=== PATIENT | female | born 1990 | race Caucasian/White ===

== ENCOUNTER 2016-11-19 16:38 | Emergency (ER) | payer OTHER ==
--- NOTE | 2016-11-19 21:04 | ED NURSING NOTES ---
Clinical Report - Nurses [facility] [address] [place] [address] 11/19/2016 16:39 Patient: EMORY IGLESIAS TRIAGE Triage time 1655. Acuity: LEVEL 3. Chief Complaint: ABDOMINAL PAIN and CRAMPS and VAGINAL BLEEDING. Alert. No acute distress. (anxious tearful). --17:25 Becky Reese 17:03 11/19/16. BP: 124/76. HR: 110. RR: 18. O2 saturation: 100%. Temp: 98.9 F. Pain level now 03/31. --17:25 Becky Reese. Weight: 61.2 kg. Height/Length: 65 inches. BMI: 22.5. --17: Becky Reese. Medications None. --17:12 Becky Reese. Allergies No Known Drug Allergy. --17:12 Becky Reese. History Arrived by private vehicle. Historian: patient. Onset. (3 days ago). ( Pt is 7 weeks and has been having bleeding and cramping, pt had leap procedure due to cervical cancer, leaving her with incompetent cervix, lost a 22 week 10/21/15 from this, is fearful she is miscarrying now, also is struggling getting needed injection and better care proactively). SOCIAL HX: Smoker- current status unknown. --17:25 Becky Reese. PROBLEMS: Cancer. Dental Pain. Alcohol Intoxication. GI Disease. Ulcerative Colitis. Crohn's Disease. Tonsillitis. Cervical Strain. --17:16 Becky Reese. ADDITIONAL SURGERIES: Dilatation & Curettage. --17:16 Becky Reese. Interventions To treatment room. --17:25 Becky Reese. PHYSICAL ASSESSMENT Ambulatory to room. GENERAL / NEURO / PSYCH: Alert. Oriented X 4. Appears anxious and in distress. HEENT: Mucous membranes are pink. RESPIRATORY: Respirations not labored. Breath sounds within normal limits. CVS: Normal heart rate and rhythm. Capillary refill less than 2 seconds. GI / : Abdomen soft and nontender. Bowel sounds within normal limits. Vaginal bleeding present. Vaginal discharge present. EXTREMITIES: No lower extremity edema. SKIN: Skin is warm and dry. --17:25 Becky Reese. NURSING PROGRESS NOTES Checked patient name and birthdate: patient confirmed. Blood samples drawn from the right antecubital space with syringe and 23g butterfly by tech per protocol ; labeled in presence of the patient: rainbow set: cardiac enzymes (1st set). --18:24 Jaime Houston 20:01 11/19/2016 Acetaminophen (APAP) PO 1000 mg given. Allergies verified and confirmed 5 rights. --20:01 Becky Reese. DISPOSITION / DISCHARGE 21:36. ( First contact with the patient. Patient refused to have any more vs done.). No learning barriers present. Discharge instructions provided and reviewed with the patient. Reviewed medication(s) side effects, precautions, dosing and course information. Prescription(s) given to the patient. Patient verbalized understanding. Written instructions provided in Malawian. The patient was discharged home. She left the Emergency Department ambulatory and via private vehicle. Patient driving. Medication list reviewed and validated. --22:15 Edilia Padilla R.N. Locked/Released at 11/19/2016 22:17 by Edilia Padilla R.N.
--- NOTE | 2016-11-19 21:04 | ED CLINICAL REPORT ---
Clinical Report - Physicians/Mid Levels [facility] [address] [place] [address] 11/19/2016 16:39 Patient: EMORY IGLESIAS Time Seen: 17:05; initial patient contact, initial documentation, patient care assumed. Arrived- By private vehicle. Historian- patient. HISTORY OF PRESENT ILLNESS Chief Complaint: PELVIC PAIN and VAGINAL BLEEDING. This started about 3 days ago and still present. The symptoms are described as moderate. Modifying factors. Not worsened by anything. Not relieved by anything. The patient has had crampy pelvic pain, described as "pain". 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 Not passing clots or tissue. She has had a copious amount of malodorous vaginal discharge (bloody). No itchy, burning or painful vaginal discharge. No pain with urination, urinary frequency, urgency of urination or hematuria. Not sexually active. Currently . Similar symptoms previously: None. Recent medical care: The patient was seen recently in the office. ( went to dr last week, had us done, was told she had subchorionic bleed, no f/u yet, still cramping and bleeding). REVIEW OF SYSTEMS No vomiting, diarrhea, fever, difficulty breathing or chest pain. All systems otherwise negative, except as recorded above. PAST HISTORY See nurses notes. ( PROBLEMS: Cancer. Dental Pain. Alcohol Intoxication. GI Disease. Ulcerative Colitis. Crohn's Disease. Tonsillitis. Cervical Strain. --17:16 Becky Reese. ADDITIONAL SURGERIES: Dilatation & Curettage. --17:16 Becky Reese.). SOCIAL HISTORY Never smoker. No alcohol use or drug use. No recent travel. Is a local resident. FAMILY HISTORY Negative. ADDITIONAL NOTES The nursing notes have been reviewed with agreement regarding the chief complaint, HPI, ROS, PMH and patient medications and allergies. PHYSICAL EXAM Vital Signs: 11/19/2016 17:03 BP: 124/76. HR: 110. RR: 18. O2 saturation: 100%. Temp: 98.9 F. Have been reviewed as abnormal and appear to be correct. Blood pressure normal. Tachycardic. Respiratory rate normal. Temperature normal. Oxygen saturation normal. Appearance: Alert. Oriented X3. No acute distress. Anxious. HEENT: Normal external inspection. ENT: Pharynx normal. Neck: Neck supple. CVS: Heart sounds normal. Respiratory: No respiratory distress. Breath sounds normal. Chest nontender. Abdomen: Soft. Bowel sounds normal. No organomegaly. No mass. Back: Normal external inspection. : External inspection normal. Speculum exam abnormal. A scant amount of thick, white and malodorous vaginal discharge present. No vaginal bleeding. Cervical os closed. No cervical dilation. No tissue present. No cervicitis. No herpes-like lesions. Bimanual exam normal. No adnexal tenderness. Skin: Skin warm and dry. Normal skin color. No rash. Normal skin turgor. Extremities: Extremities nontender. No lower extremity edema. Neuro: Oriented X 3. Mood/affect normal. No motor deficit. No sensory deficit. LABS, X-RAYS, AND EKG Pelvic Sonogram: A single gestation intrauterine (7w1d) is present with subchorionic hemorrhage. Cardiac activity noted. Single focus of cardiac activity present (hr 131). A small subchorionic hemorrhage is present. . verbal report from [employer]. Interpretation time: 20:50. Laboratory Tests: CBC w Diff: (ADRIANNA: 11/19/2016 18:10) ( MsgRcvd 11/19/2016 18:23) Final results Test Result Flag Units (Reference) WHITE BLOOD COUNT 14.6 H K/uL (4.5-11.5) RED BLOOD COUNT 3.76 L M/uL (4.00-5.20) HEMOGLOBIN 12.5 gm/dL (12.0-16.0) HEMATOCRIT 36.4 % (36.0-46.0) MEAN CELL VOLUME 97 fL (80-100) MEAN CORPUSCULAR HGB 33 pg (26-34) MEAN CORPUSCULAR HGB CONC 34 g/dL (31-37) RED CELL DISTRIBUTION WIDTH 12.0 % (11.6-14.8) PLATELET COUNT 261 K/uL (150-400) NEUTROPHIL % 81.4 H % (50-75) LYMPH % 12.4 L % (25-40) MONO % 5.5 % (3-14) EOSINOPHIL % 0.2 % (0-4) BASOPHIL % 0.5 % (0-2) Serum Quantitative: (ADRIANNA: 11/19/2016 00:01) ( MsgRcvd 11/19/2016 19:46) Final results Test Result Flag Units (Reference) BETA HCG, QUANTITATIVE 635796 mIU/mL REFERENCE RANGE:Adult Males: <2 mIU/mLNon- Females: <6 mIU/mL Females:Approximate Approximate hCGGestational Age Range (mIU/mL) 0-1 week 0-501-2 weeks 40-3002-3 weeks 100-42030-6 weeks 500-63302-9 months 5,000-200,0002-3 months 10,000-100,0002nd trimester 3,000-50,0003rd trimester 1,000-50,000 BMP: (ADRIANNA: 11/19/2016 18:10) ( MsgRcvd 11/19/2016 18:46) Final results Test Result Flag Units (Reference) GLUCOSE 78 mg/dL (70-110) BUN 5 L mg/dL (7-18) CREATININE 0.5 L mg/dL (0.6-1.3) Estimated GFR >60 mL/min Estimated GFR- >60 mL/min Note: Persistent reduction over 3 months in eGFR<60 mL/min/1.73 m2 defines CKD. Patients with eGFR values>=60 mL/min/1.73 m2 may also have CKD if evidence ofpersistent proteinuria. Additional information may be foundat www.kidney.org. SODIUM 138 mmol/L (136-145) POTASSIUM 3.5 mmol/L (3.5-5.1) CHLORIDE 102 mmol/L (98-107) CARBON DIOXIDE 26 mmol/L (21-32) CALCIUM 8.7 mg/dL (8.5-10.1) Wet Prep: (ADRIANNA: 11/19/2016 17:45) ( MsgRcvd 11/19/2016 18:01) Final results SPECIMEN DESCRIPTION: CERVIX Test Result Flag Units (Reference) WET MOUNT CLUE CELLS:: MODERATE * EPITHELIAL CELLS: MODERATE -- SOURCE?: CERVIX WHITE BLOOD CELLS: MODERATE TRICHOMONAS:: NONE -- YEAST:: NONE . PROGRESS AND PROCEDURES Course of Care: 17:06 11/19/16. pt has deanna for frequent er visits, #8, controlled substances and alcohol abuse, see report for full details 0. asked staff to call lab twice regarding quant results, still pending 1924. OBSTETRICS GYN PHYSICIAN student Donna with me on this pt, went to room to update pt on results, pt aware of bv, pt upset over delay of labs and threatening to leave in us and labs aren't done in 15 min 19:51 11/19/16. pt updated with lab results, and pending us 20:22 11/19/16. US here. Patient counseled in person regarding the patient's stable condition, test results and diagnosis. 20:51. Differential Diagnosis: I considered vaginitis, ovarian cysts, pelvic inflammatory disease, endometriosis, uterine fibroids, intrauterine , ectopic , incomplete , threatened , retained products of and endometritis as a possible cause of vaginal bleeding in this patient. This is a partial list of diagnoses considered. Above considerations are based on history, physical exam and laboratory data. Differential diagnosis was discussed with patient. Disposition: Discharged home in good and improved condition (21:04). Condition: good and stable. CLINICAL IMPRESSION Acute moderate bacterial vaginitis Acute pelvic pain. INSTRUCTIONS Warnings: GENERAL WARNINGS: Return or contact your physician immediately if your condition worsens or changes unexpectedly, if not improving as expected, or if other problems arise. Specifically return if problem worsens. Prescription Medications: Flagyl 500 mg: Take 1 tablet orally every 12 hours for 7 days. No refill. Substitution is permissible. Understanding of the discharge instructions verbalized by patient. Follow-up with: Ezequiel Keith MD, Obstetrics/Gynecology, , [facility], [address] [place] [address] Follow up in about three days even if well. Call for an appointment. Summary of care provided to patient. (Electronically signed by Tegan Clarke A.R.N.P. 11/19/2016 22:35)
--- NOTE | 2016-11-19 21:04 | ED ORDER SUMMARY ---
..... Patient: EMORY IGLESIAS OrderSheet [facility] VisitID: [id number] [place] [address] 26y, F Registration Date/Time: 11/19/2016 ORDER SHEET Weight: 61.2 kg Allergies: No Known Drug Allergy GENERAL ORDERS: CBC w Diff Urgent (17:35 11/19/2016 HBivens A.R.N.P.) (Ack 17:48 RKaruga) (18:25 LTapper) BMP Urgent (17:35 11/19/2016 HBivens A.R.N.P.) (Ack 17:48 RKaruga) (18:25 LTapper) Serum Qualitative Urgent (17:35 11/19/2016 HBivens A.R.N.P.) (17:35 HBivens A.R.N.P.) (Cancelled: Other17:35 HBivens A.R.N.P.) Serum Quantitative Urgent (17:35 11/19/2016 HBivens A.R.N.P.) (Ack 17:48 RKaruga) (18:35 MWinterer R.N.) Pelvic Exam Setup (17:35 11/19/2016 HBivens A.R.N.P.) (17:48 RKaruga) Wet Prep (Cervix) (cervix) Urgent (17:47 11/19/2016 HBivens A.R.N.P.) (Ack 17:48 RKaruga) Serum Quantitative Urgent (19:18 11/19/2016 LTapper written order HBivens A.R.N.P.) (Ack 19:59 LTapper) US OB 1st Trimester w Transvag (7 wks ago) Urgent (19:50 11/19/2016 HBivens A.R.N.P.) (Ack 19:59 LTapper) (21:04 RFay) MEDICATION ORDERS: Acetaminophen PO 1,000 mg (NOW) (19:52 11/19/2016 HBivens A.R.N.P.) (20:01 EBonham) IV FLUIDS: ORDER SHEET NOTES: [Electronically signed by Edilia Padilla R.N. (22:17 11/19/2016)] [Electronically signed by Tegan Clarke (22:35 11/19/2016)] [Electronically locked/signed by Edilia Padilla R.N. (22:17 11/19/2016)]
--- NOTE | 2016-11-19 21:04 | ED CLINICAL REPORT ---
Clinical Report - Physicians/Mid Levels [facility] [address] [place] [address] 11/19/2016 16:39 Patient: EMORY IGLESIAS Time Seen: 17:05; initial patient contact, initial documentation, patient care assumed. Arrived- By private vehicle. Historian- patient. HISTORY OF PRESENT ILLNESS Chief Complaint: PELVIC PAIN and VAGINAL BLEEDING. This started about 3 days ago and still present. The symptoms are described as moderate. Modifying factors. Not worsened by anything. Not relieved by anything. The patient has had crampy pelvic pain, described as "pain". 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 Not passing clots or tissue. She has had a copious amount of malodorous vaginal discharge (bloody). No itchy, burning or painful vaginal discharge. No pain with urination, urinary frequency, urgency of urination or hematuria. Not sexually active. Currently . Similar symptoms previously: None. Recent medical care: The patient was seen recently in the office. ( went to dr last week, had us done, was told she had subchorionic bleed, no f/u yet, still cramping and bleeding). REVIEW OF SYSTEMS No vomiting, diarrhea, fever, difficulty breathing or chest pain. All systems otherwise negative, except as recorded above. PAST HISTORY See nurses notes. ( PROBLEMS: Cancer. Dental Pain. Alcohol Intoxication. GI Disease. Ulcerative Colitis. Crohn's Disease. Tonsillitis. Cervical Strain. --17:16 Becky Reese. ADDITIONAL SURGERIES: Dilatation & Curettage. --17:16 Becky Reese.). SOCIAL HISTORY Never smoker. No alcohol use or drug use. No recent travel. Is a local resident. FAMILY HISTORY Negative. ADDITIONAL NOTES The nursing notes have been reviewed with agreement regarding the chief complaint, HPI, ROS, PMH and patient medications and allergies. PHYSICAL EXAM Vital Signs: 11/19/2016 17:03 BP: 124/76. HR: 110. RR: 18. O2 saturation: 100%. Temp: 98.9 F. Have been reviewed as abnormal and appear to be correct. Blood pressure normal. Tachycardic. Respiratory rate normal. Temperature normal. Oxygen saturation normal. Appearance: Alert. Oriented X3. No acute distress. Anxious. HEENT: Normal external inspection. ENT: Pharynx normal. Neck: Neck supple. CVS: Heart sounds normal. Respiratory: No respiratory distress. Breath sounds normal. Chest nontender. Abdomen: Soft. Bowel sounds normal. No organomegaly. No mass. Back: Normal external inspection. : External inspection normal. Speculum exam abnormal. A scant amount of thick, white and malodorous vaginal discharge present. No vaginal bleeding. Cervical os closed. No cervical dilation. No tissue present. No cervicitis. No herpes-like lesions. Bimanual exam normal. No adnexal tenderness. Skin: Skin warm and dry. Normal skin color. No rash. Normal skin turgor. Extremities: Extremities nontender. No lower extremity edema. Neuro: Oriented X 3. Mood/affect normal. No motor deficit. No sensory deficit. LABS, X-RAYS, AND EKG Pelvic Sonogram: A single gestation intrauterine (7w1d) is present with subchorionic hemorrhage. Cardiac activity noted. Single focus of cardiac activity present (hr 131). A small subchorionic hemorrhage is present. . verbal report from [employer]. Interpretation time: 20:50. Laboratory Tests: CBC w Diff: (ADRIANNA: 11/19/2016 18:10) ( MsgRcvd 11/19/2016 18:23) Final results Test Result Flag Units (Reference) WHITE BLOOD COUNT 14.6 H K/uL (4.5-11.5) RED BLOOD COUNT 3.76 L M/uL (4.00-5.20) HEMOGLOBIN 12.5 gm/dL (12.0-16.0) HEMATOCRIT 36.4 % (36.0-46.0) MEAN CELL VOLUME 97 fL (80-100) MEAN CORPUSCULAR HGB 33 pg (26-34) MEAN CORPUSCULAR HGB CONC 34 g/dL (31-37) RED CELL DISTRIBUTION WIDTH 12.0 % (11.6-14.8) PLATELET COUNT 261 K/uL (150-400) NEUTROPHIL % 81.4 H % (50-75) LYMPH % 12.4 L % (25-40) MONO % 5.5 % (3-14) EOSINOPHIL % 0.2 % (0-4) BASOPHIL % 0.5 % (0-2) Serum Quantitative: (ADRIANNA: 11/19/2016 00:01) ( MsgRcvd 11/19/2016 19:46) Final results Test Result Flag Units (Reference) BETA HCG, QUANTITATIVE 866680 mIU/mL REFERENCE RANGE:Adult Males: <2 mIU/mLNon- Females: <6 mIU/mL Females:Approximate Approximate hCGGestational Age Range (mIU/mL) 0-1 week 0-501-2 weeks 40-3002-3 weeks 100-28981-1 weeks 500-41328-5 months 5,000-200,0002-3 months 10,000-100,0002nd trimester 3,000-50,0003rd trimester 1,000-50,000 BMP: (ADRIANNA: 11/19/2016 18:10) ( MsgRcvd 11/19/2016 18:46) Final results Test Result Flag Units (Reference) GLUCOSE 78 mg/dL (70-110) BUN 5 L mg/dL (7-18) CREATININE 0.5 L mg/dL (0.6-1.3) Estimated GFR >60 mL/min Estimated GFR- >60 mL/min Note: Persistent reduction over 3 months in eGFR<60 mL/min/1.73 m2 defines CKD. Patients with eGFR values>=60 mL/min/1.73 m2 may also have CKD if evidence ofpersistent proteinuria. Additional information may be foundat www.kidney.org. SODIUM 138 mmol/L (136-145) POTASSIUM 3.5 mmol/L (3.5-5.1) CHLORIDE 102 mmol/L (98-107) CARBON DIOXIDE 26 mmol/L (21-32) CALCIUM 8.7 mg/dL (8.5-10.1) Wet Prep: (ADRIANNA: 11/19/2016 17:45) ( MsgRcvd 11/19/2016 18:01) Final results SPECIMEN DESCRIPTION: CERVIX Test Result Flag Units (Reference) WET MOUNT CLUE CELLS:: MODERATE * EPITHELIAL CELLS: MODERATE -- SOURCE?: CERVIX WHITE BLOOD CELLS: MODERATE TRICHOMONAS:: NONE -- YEAST:: NONE . PROGRESS AND PROCEDURES Course of Care: 17:06 11/19/16. pt has deanna for frequent er visits, #8, controlled substances and alcohol abuse, see report for full details 0. asked staff to call lab twice regarding quant results, still pending 1924. SUPERVISING NURSE student Donna with me on this pt, went to room to update pt on results, pt aware of bv, pt upset over delay of labs and threatening to leave in us and labs aren't done in 15 min 19:51 11/19/16. pt updated with lab results, and pending us 20:22 11/19/16. US here. Patient counseled in person regarding the patient's stable condition, test results and diagnosis. 20:51. Differential Diagnosis: I considered vaginitis, ovarian cysts, pelvic inflammatory disease, endometriosis, uterine fibroids, intrauterine , ectopic , incomplete , threatened , retained products of and endometritis as a possible cause of vaginal bleeding in this patient. This is a partial list of diagnoses considered. Above considerations are based on history, physical exam and laboratory data. Differential diagnosis was discussed with patient. Disposition: Discharged home in good and improved condition (21:04). Condition: good and stable. CLINICAL IMPRESSION Acute moderate bacterial vaginitis Acute pelvic pain. INSTRUCTIONS Warnings: GENERAL WARNINGS: Return or contact your physician immediately if your condition worsens or changes unexpectedly, if not improving as expected, or if other problems arise. Specifically return if problem worsens. Prescription Medications: Flagyl 500 mg: Take 1 tablet orally every 12 hours for 7 days. No refill. Substitution is permissible. Understanding of the discharge instructions verbalized by patient. Follow-up with: Ezequiel Keith MD, Obstetrics/Gynecology, , [facility], [address] [place] [address] Follow up in about three days even if well. Call for an appointment. Summary of care provided to patient. (Electronically signed by Tegan Clarke A.R.N.P. 11/19/2016 22:35)
--- NOTE | 2016-11-19 21:04 | ED ORDER SUMMARY ---
..... Patient: EMORY IGLESIAS OrderSheet [facility] VisitID: [id number] [place] [address] 26y, F Registration Date/Time: 11/19/2016 ORDER SHEET Weight: 61.2 kg Allergies: No Known Drug Allergy GENERAL ORDERS: CBC w Diff Urgent (17:35 11/19/2016 HBivens A.R.N.P.) (Ack 17:48 RKaruga) (18:25 LTapper) BMP Urgent (17:35 11/19/2016 HBivens A.R.N.P.) (Ack 17:48 RKaruga) (18:25 LTapper) Serum Qualitative Urgent (17:35 11/19/2016 HBivens A.R.N.P.) (17:35 HBivens A.R.N.P.) (Cancelled: Other17:35 HBivens A.R.N.P.) Serum Quantitative Urgent (17:35 11/19/2016 HBivens A.R.N.P.) (Ack 17:48 RKaruga) (18:35 MWinterer R.N.) Pelvic Exam Setup (17:35 11/19/2016 HBivens A.R.N.P.) (17:48 RKaruga) Wet Prep (Cervix) (cervix) Urgent (17:47 11/19/2016 HBivens A.R.N.P.) (Ack 17:48 RKaruga) Serum Quantitative Urgent (19:18 11/19/2016 LTapper written order HBivens A.R.N.P.) (Ack 19:59 LTapper) US OB 1st Trimester w Transvag (7 wks ago) Urgent (19:50 11/19/2016 HBivens A.R.N.P.) (Ack 19:59 LTapper) (21:04 RFay) MEDICATION ORDERS: Acetaminophen PO 1,000 mg (NOW) (19:52 11/19/2016 HBivens A.R.N.P.) (20:01 EBonham) IV FLUIDS: ORDER SHEET NOTES: [Electronically signed by Edilia Padilla R.N. (22:17 11/19/2016)] [Electronically signed by Tegan Clarke (22:35 11/19/2016)] [Electronically locked/signed by Edilia Padilla R.N. (22:17 11/19/2016)]
--- NOTE | 2016-11-19 21:04 | ED NURSING NOTES ---
Clinical Report - Nurses [facility] [address] [place] [address] 11/19/2016 16:39 Patient: EMORY IGLESIAS TRIAGE Triage time 1655. Acuity: LEVEL 3. Chief Complaint: ABDOMINAL PAIN and CRAMPS and VAGINAL BLEEDING. Alert. No acute distress. (anxious tearful). --17:25 Becky Reese 17:03 11/19/16. BP: 124/76. HR: 110. RR: 18. O2 saturation: 100%. Temp: 98.9 F. Pain level now 03/31. --17:25 Becky Reese. Weight: 61.2 kg. Height/Length: 65 inches. BMI: 22.5. --17: Becky Reese. Medications None. --17:12 Becky Reese. Allergies No Known Drug Allergy. --17:12 Becky Reese. History Arrived by private vehicle. Historian: patient. Onset. (3 days ago). ( Pt is 7 weeks and has been having bleeding and cramping, pt had leap procedure due to cervical cancer, leaving her with incompetent cervix, lost a 22 week 10/21/15 from this, is fearful she is miscarrying now, also is struggling getting needed injection and better care proactively). SOCIAL HX: Smoker- current status unknown. --17:25 Becky Reese. PROBLEMS: Cancer. Dental Pain. Alcohol Intoxication. GI Disease. Ulcerative Colitis. Crohn's Disease. Tonsillitis. Cervical Strain. --17:16 Becky Reese. ADDITIONAL SURGERIES: Dilatation & Curettage. --17:16 Becky Reese. Interventions To treatment room. --17:25 Becky Reese. PHYSICAL ASSESSMENT Ambulatory to room. GENERAL / NEURO / PSYCH: Alert. Oriented X 4. Appears anxious and in distress. HEENT: Mucous membranes are pink. RESPIRATORY: Respirations not labored. Breath sounds within normal limits. CVS: Normal heart rate and rhythm. Capillary refill less than 2 seconds. GI / : Abdomen soft and nontender. Bowel sounds within normal limits. Vaginal bleeding present. Vaginal discharge present. EXTREMITIES: No lower extremity edema. SKIN: Skin is warm and dry. --17:25 Becky Reese. NURSING PROGRESS NOTES Checked patient name and birthdate: patient confirmed. Blood samples drawn from the right antecubital space with syringe and 23g butterfly by tech per protocol ; labeled in presence of the patient: rainbow set: cardiac enzymes (1st set). --18:24 Jaime Houston 20:01 11/19/2016 Acetaminophen (APAP) PO 1000 mg given. Allergies verified and confirmed 5 rights. --20:01 Becky Reese. DISPOSITION / DISCHARGE 21:36. ( First contact with the patient. Patient refused to have any more vs done.). No learning barriers present. Discharge instructions provided and reviewed with the patient. Reviewed medication(s) side effects, precautions, dosing and course information. Prescription(s) given to the patient. Patient verbalized understanding. Written instructions provided in Iranian. The patient was discharged home. She left the Emergency Department ambulatory and via private vehicle. Patient driving. Medication list reviewed and validated. --22:15 Edilia Padilla R.N. Locked/Released at 11/19/2016 22:17 by Edilia Padilla R.N.
--- NOTE | 2016-11-19 22:35 | ED DISCHARGE INSTRUCTIONS ---
Patient: EMORY IGLESIAS General Instructions [facility] VisitID: [id number] [place] [address] 26y, F Registration Date/Time: 11/19/2016 Acute moderate bacterial vaginitis Acute pelvic pain. INSTRUCTIONS Warnings: GENERAL WARNINGS: Return or contact your physician immediately if your condition worsens or changes unexpectedly, if not improving as expected, or if other problems arise. Specifically return if problem worsens. Prescription Medications: Flagyl 500 mg: Take 1 tablet orally every 12 hours for 7 days. No refill. Substitution is permissible. Understanding of the discharge instructions verbalized by patient. Follow-up with: Ezequiel Keith MD, Obstetrics/Gynecology, , [facility], [address] [place] [address] Follow up in about three days even if well. Call for an appointment. Summary of care provided to patient. ADDITIONAL INFORMATION Pelvic Pain, Uncertain Cause Based on your visit today, the exact cause of your pelvic pain is not certain. But your condition does not appear to be serious at this time. However, the signs of a serious problem may take more time to appear. Therefore, it is important for you to watch for any new symptoms or worsening of your condition. Home Care: Rest until you are feeling better. Avoid sexual intercourse until your pain goes away. You may use acetaminophen (Tylenol) or ibuprofen (Motrin, Advil) to control pain, unless another medicine was prescribed. [NOTE: If you have chronic liver or kidney disease or ever had a stomach ulcer or GI bleeding, talk with your doctor before using these medicines.] Follow Up with your doctor as advised. If a culture test was taken, call in two days for the results. If the culture is positive, you will be given more advice at that time. Otherwise, follow-up with your doctor or this facility as instructed. Get Prompt Medical Attention if any of the following occur: Fever of 100.4F (38C) or higher, or as directed by your healthcare provider Vaginal discharge Worsening pain Weakness, dizziness or fainting Unexpected vaginal bleeding or passage of osei or white tissue from the vagina Pain that moves to the right lower abdomen Bacterial Vaginosis You have a bacterial infection of the vagina called bacterial vaginosis (BV). It may also be called gardnerella or non-specific vaginitis. BV occurs when the "bad" bacteria outnumber the "good" bacteria that are normally present in the vagina. Symptoms include foul-smelling vaginal discharge (most noticeable after vaginal intercourse). There may also be burning with urination. The burning is caused as the urine passes over the inflamed outer vaginal area. The cause of bacterial vaginosis is not certain. However, your risk is higher if you recently began a new sexual relationship, or have had many sex partners in the past. Your risk is also higher if you douche often. While bacterial vaginosis most often occurs only in sexually active women, this is not a true sexually transmitted disease. You did not get this from your partner. You cannot give it to your partner. The infection may be related to temporary changes in the pH of vaginal fluids after being exposed to semen. Home Care: Keep the genital area clean and free of discharge. Do this by wearing an absorbent sanitary pad and changing it often. Shower daily. When you shower, clean the outer vaginal area with plain soap and water. Do not douche during treatment unless advised to do so by your doctor. Routine douching after treatment is no longer recommended to clean the vagina. It raises your risk of vaginal infection and pelvic inflammatory disease. Avoid having sex until you have finished all antibiotic medicine and all symptoms have gone away. Wear cotton underwear or cotton-lined panty hose. Dont wear pants that are too tight. Limiting the number of sex partners you have lowers your risk of this and other vaginal infections, STDs, and HIV. Take all medicine as directed until it is gone, even if you are feeling better. If you dont do this, symptoms might return. Follow Up with your doctor if symptoms dont go away after the medicine is finished. Get Prompt Medical Attention if any of the following occur: Fever of 100.4F (38C) or higher, or as directed by your healthcare provider Lower abdominal pain Rash or joint pain Painful sores around the outer vaginal area or on your partners penis Metronidazole Oral tablet What is this medicine? METRONIDAZOLE (me troe NI da zole) is an antiinfective. It is used to treat certain kinds of bacterial and protozoal infections. It will not work for colds, flu, or other viral infections. How should I use this medicine? Take this medicine by mouth with a full glass of water. Follow the directions on the prescription label. Take your medicine at regular intervals. Do not take your medicine more often than directed. Take all of your medicine as directed even if you think you are better. Do not skip doses or stop your medicine early. Talk to your assistant paralegal regarding the use of this medicine in children. Special care may be needed. What side effects may I notice from receiving this medicine? Side effects that you should report to your doctor or health manager intensive care as soon as possible: allergic reactions like skin rash or hives, swelling of the face, lips, or tongue confusion, clumsiness difficulty speaking discolored or sore mouth dizziness fever, infection numbness, tingling, pain or weakness in the hands or feet trouble passing urine or change in the amount of urine redness, blistering, peeling or loosening of the skin, including inside the mouth seizures unusually weak or tired vaginal irritation, dryness, or discharge Side effects that usually do not require medical attention (report to your doctor or health manager intensive care if they continue or are bothersome): diarrhea headache irritability metallic taste nausea stomach pain or cramps trouble sleeping What may interact with this medicine? Do not take this medicine with any of the following medications: alcohol or any product that contains alcohol amprenavir oral solution cisapride disulfiram dofetilide dronedarone paclitaxel injection pimozide ritonavir oral solution sertraline oral solution sulfamethoxazole-trimethoprim injection thioridazine ziprasidone This medicine may also interact with the following medications: cimetidine lithium other medicines that prolong the QT interval (cause an abnormal heart rhythm) phenobarbital phenytoin warfarin What if I miss a dose? If you miss a dose, take it as soon as you can. If it is almost time for your next dose, take only that dose. Do not take double or extra doses. Where should I keep my medicine? Keep out of the reach of children. Store at room temperature below 25 degrees C (77 degrees F). Protect from light. Keep container tightly closed. Throw away any unused medicine after the expiration date. What should I tell my health care provider before I take this medicine? They need to know if you have any of these conditions: anemia or other blood disorders disease of the nervous system fungal or yeast infection if you drink alcohol containing drinks liver disease seizures an unusual or allergic reaction to metronidazole, or other medicines, foods, dyes, or preservatives or trying to get breast-feeding What should I watch for while using this medicine? Tell your doctor or health manager intensive care if your symptoms do not improve or if they get worse. You may get drowsy or dizzy. Do not drive, use machinery, or do anything that needs mental alertness until you know how this medicine affects you. Do not stand or sit up quickly, especially if you are an older patient. This reduces the risk of dizzy or fainting spells. Avoid alcoholic drinks while you are taking this medicine and for three days afterward. Alcohol may make you feel dizzy, sick, or flushed. If you are being treated for a sexually transmitted disease, avoid sexual contact until you have finished your treatment. Your sexual partner may also need treatment. You have been given the following additional information: Pelvic Pain, Unknown Cause Vaginitis, Bacterial Metronidazole Oral tablet (Electronically signed by Tegan Clarke A.R.N.P. 11/19/2016 22:35)
--- NOTE | 2016-11-19 22:35 | ED MED RECONCILIATION SUMMARY ---
Patient: EMORY IGLESIAS Medication Reconciliation Report [facility] VisitID: [id number] [address] [place] [address] 26y, F Registration Date/Time: 11/19/2016 Weight: 61.2 kg Height/Length: 65 in. BMI: 22.5 ALLERGIES: No Known Drug Allergy The patient's Home Medications are listed below: NONE. The source(s) of the original Home Medication information: Not obtained. The following Medications were given to the patient in the Emergency Department: Acetaminophen [PO] PO 1000 mg, administered: 11/19/2016 8:01:00 PM The following Medications were prescribed to the patient: Flagyl 500 mg: Take 1 tablet orally every 12 hours for 7 days. No refill. Substitution is permissible. -- Tegan Clarke A.R.N.P.
--- NOTE | 2016-11-19 22:35 | ED MAR SUMMARY ---
..... Medication Administration Record [address] [place] [address] Patient: EMORY IGLESIAS Visit ID: [id number] 26y, F Weight: 61.2 kg Height/Length: 65 in BMI: 22.5 ALLERGIES: No Known Drug Allergy Given 20:01 11/19/2016 Becky Reese, Medication Administered: ACETAMINOPHEN [PO] (APAP), Dose: 1000 mg PO. Medication Ordered: Acetaminophen PO 1,000 mg (NOW).
--- NOTE | 2016-11-19 22:35 | ED MED RECONCILIATION SUMMARY ---
Patient: EMORY IGLESIAS Medication Reconciliation Report [facility] VisitID: [id number] [address] [place] [address] 26y, F Registration Date/Time: 11/19/2016 Weight: 61.2 kg Height/Length: 65 in. BMI: 22.5 ALLERGIES: No Known Drug Allergy The patient's Home Medications are listed below: NONE. The source(s) of the original Home Medication information: Not obtained. The following Medications were given to the patient in the Emergency Department: Acetaminophen [PO] PO 1000 mg, administered: 11/19/2016 8:01:00 PM The following Medications were prescribed to the patient: Flagyl 500 mg: Take 1 tablet orally every 12 hours for 7 days. No refill. Substitution is permissible. -- Tegan Clarke A.R.N.P.
--- NOTE | 2016-11-19 22:35 | ED DISCHARGE INSTRUCTIONS ---
Patient: EMORY IGLESIAS General Instructions [facility] VisitID: [id number] [place] [address] 26y, F Registration Date/Time: 11/19/2016 Acute moderate bacterial vaginitis Acute pelvic pain. INSTRUCTIONS Warnings: GENERAL WARNINGS: Return or contact your physician immediately if your condition worsens or changes unexpectedly, if not improving as expected, or if other problems arise. Specifically return if problem worsens. Prescription Medications: Flagyl 500 mg: Take 1 tablet orally every 12 hours for 7 days. No refill. Substitution is permissible. Understanding of the discharge instructions verbalized by patient. Follow-up with: Ezequiel Keith MD, Obstetrics/Gynecology, , [facility], [address] [place] [address] Follow up in about three days even if well. Call for an appointment. Summary of care provided to patient. ADDITIONAL INFORMATION Pelvic Pain, Uncertain Cause Based on your visit today, the exact cause of your pelvic pain is not certain. But your condition does not appear to be serious at this time. However, the signs of a serious problem may take more time to appear. Therefore, it is important for you to watch for any new symptoms or worsening of your condition. Home Care: Rest until you are feeling better. Avoid sexual intercourse until your pain goes away. You may use acetaminophen (Tylenol) or ibuprofen (Motrin, Advil) to control pain, unless another medicine was prescribed. [NOTE: If you have chronic liver or kidney disease or ever had a stomach ulcer or GI bleeding, talk with your doctor before using these medicines.] Follow Up with your doctor as advised. If a culture test was taken, call in two days for the results. If the culture is positive, you will be given more advice at that time. Otherwise, follow-up with your doctor or this facility as instructed. Get Prompt Medical Attention if any of the following occur: Fever of 100.4F (38C) or higher, or as directed by your healthcare provider Vaginal discharge Worsening pain Weakness, dizziness or fainting Unexpected vaginal bleeding or passage of osei or white tissue from the vagina Pain that moves to the right lower abdomen Bacterial Vaginosis You have a bacterial infection of the vagina called bacterial vaginosis (BV). It may also be called gardnerella or non-specific vaginitis. BV occurs when the "bad" bacteria outnumber the "good" bacteria that are normally present in the vagina. Symptoms include foul-smelling vaginal discharge (most noticeable after vaginal intercourse). There may also be burning with urination. The burning is caused as the urine passes over the inflamed outer vaginal area. The cause of bacterial vaginosis is not certain. However, your risk is higher if you recently began a new sexual relationship, or have had many sex partners in the past. Your risk is also higher if you douche often. While bacterial vaginosis most often occurs only in sexually active women, this is not a true sexually transmitted disease. You did not get this from your partner. You cannot give it to your partner. The infection may be related to temporary changes in the pH of vaginal fluids after being exposed to semen. Home Care: Keep the genital area clean and free of discharge. Do this by wearing an absorbent sanitary pad and changing it often. Shower daily. When you shower, clean the outer vaginal area with plain soap and water. Do not douche during treatment unless advised to do so by your doctor. Routine douching after treatment is no longer recommended to clean the vagina. It raises your risk of vaginal infection and pelvic inflammatory disease. Avoid having sex until you have finished all antibiotic medicine and all symptoms have gone away. Wear cotton underwear or cotton-lined panty hose. Dont wear pants that are too tight. Limiting the number of sex partners you have lowers your risk of this and other vaginal infections, STDs, and HIV. Take all medicine as directed until it is gone, even if you are feeling better. If you dont do this, symptoms might return. Follow Up with your doctor if symptoms dont go away after the medicine is finished. Get Prompt Medical Attention if any of the following occur: Fever of 100.4F (38C) or higher, or as directed by your healthcare provider Lower abdominal pain Rash or joint pain Painful sores around the outer vaginal area or on your partners penis Metronidazole Oral tablet What is this medicine? METRONIDAZOLE (me troe NI da zole) is an antiinfective. It is used to treat certain kinds of bacterial and protozoal infections. It will not work for colds, flu, or other viral infections. How should I use this medicine? Take this medicine by mouth with a full glass of water. Follow the directions on the prescription label. Take your medicine at regular intervals. Do not take your medicine more often than directed. Take all of your medicine as directed even if you think you are better. Do not skip doses or stop your medicine early. Talk to your engineering instructor regarding the use of this medicine in children. Special care may be needed. What side effects may I notice from receiving this medicine? Side effects that you should report to your doctor or health lawn care worker as soon as possible: allergic reactions like skin rash or hives, swelling of the face, lips, or tongue confusion, clumsiness difficulty speaking discolored or sore mouth dizziness fever, infection numbness, tingling, pain or weakness in the hands or feet trouble passing urine or change in the amount of urine redness, blistering, peeling or loosening of the skin, including inside the mouth seizures unusually weak or tired vaginal irritation, dryness, or discharge Side effects that usually do not require medical attention (report to your doctor or health lawn care worker if they continue or are bothersome): diarrhea headache irritability metallic taste nausea stomach pain or cramps trouble sleeping What may interact with this medicine? Do not take this medicine with any of the following medications: alcohol or any product that contains alcohol amprenavir oral solution cisapride disulfiram dofetilide dronedarone paclitaxel injection pimozide ritonavir oral solution sertraline oral solution sulfamethoxazole-trimethoprim injection thioridazine ziprasidone This medicine may also interact with the following medications: cimetidine lithium other medicines that prolong the QT interval (cause an abnormal heart rhythm) phenobarbital phenytoin warfarin What if I miss a dose? If you miss a dose, take it as soon as you can. If it is almost time for your next dose, take only that dose. Do not take double or extra doses. Where should I keep my medicine? Keep out of the reach of children. Store at room temperature below 25 degrees C (77 degrees F). Protect from light. Keep container tightly closed. Throw away any unused medicine after the expiration date. What should I tell my health care provider before I take this medicine? They need to know if you have any of these conditions: anemia or other blood disorders disease of the nervous system fungal or yeast infection if you drink alcohol containing drinks liver disease seizures an unusual or allergic reaction to metronidazole, or other medicines, foods, dyes, or preservatives or trying to get breast-feeding What should I watch for while using this medicine? Tell your doctor or health lawn care worker if your symptoms do not improve or if they get worse. You may get drowsy or dizzy. Do not drive, use machinery, or do anything that needs mental alertness until you know how this medicine affects you. Do not stand or sit up quickly, especially if you are an older patient. This reduces the risk of dizzy or fainting spells. Avoid alcoholic drinks while you are taking this medicine and for three days afterward. Alcohol may make you feel dizzy, sick, or flushed. If you are being treated for a sexually transmitted disease, avoid sexual contact until you have finished your treatment. Your sexual partner may also need treatment. You have been given the following additional information: Pelvic Pain, Unknown Cause Vaginitis, Bacterial Metronidazole Oral tablet (Electronically signed by Tegan Clarke A.R.N.P. 11/19/2016 22:35)
--- NOTE | 2016-11-19 22:35 | ED MAR SUMMARY ---
..... Medication Administration Record [address] [place] [address] Patient: EMORY IGLESIAS Visit ID: [id number] 26y, F Weight: 61.2 kg Height/Length: 65 in BMI: 22.5 ALLERGIES: No Known Drug Allergy Given 20:01 11/19/2016 Becky Reese, Medication Administered: ACETAMINOPHEN [PO] (APAP), Dose: 1000 mg PO. Medication Ordered: Acetaminophen PO 1,000 mg (NOW).
--- NOTE | 2016-11-19 23:28 | DIAGNOSTIC IMAGING REPORT ---
PROCEDURE: US OB 1ST TRIMESTER W/TRANSVAG INDICATION: Pain. History of cerclage (prior . TECHNIQUE: Bonner scale, color, and spectral Doppler transabdominal and endovaginal sonographic images of the first trimester gravid uterus were obtained. COMPARISON: Compared to pelvic ultrasound 02/01/2016. FINDINGS: TRANSABDOMINAL SCANS: Early intrauterine gestational sac. Kidneys are normal. TRANSVAGINAL SCANS: Early viable intrauterine with cardiac activity (131). [place]erstrand-rump length 1.0 cm (7.0 weeks). Placenta circumferential. Normal fluid and cervix length (3.5 cm). No evidence of free fluid. IMPRESSION: 1. Early viable intrauterine at 7.0 weeks menstrual age (plus or minus 0.7 weeks). MARK is 07/07/2017.
== END 2016-11-19 21:36 | disposition home or self-care (01) ==
LOC: ED SRH 16:38
DX: O23.591 Infection of other part of genital tract in pregnancy, first trimester (principal); N76.0 Acute vaginitis; B96.89 Other specified bacterial agents as the cause of diseases classified elsewhere; Z3A.01 Less than 8 weeks gestation of pregnancy
CPT/HCPCS: 90047; 90195; 90197; 95059